=== PATIENT | female | born 1970 | race Hispanic/Latino ===

== ENCOUNTER 2023-12-27 17:25 | Emergency (ER) | payer BC ==
[2023-12-27 18:30] LABS: #Basophils 0.06 10x3/uL (0.0-0.2); %Basophils 0.5 % (0.0-1.0); %Eosinophils 2.5 % (0.0-10.0); %Lymphocytes 28.2 % (21.0-51.0); %Neutrophils 62.5 % (42.0-75.0); Hematocrit 42.4 % (36.0-47.0); Hemoglobin 13.8 g/dL (12.0-16.0); Mean Corpuscular HGB CONC 32.5 g/dL (32.0-36.0); Mean Corpuscular Hemoglobin 28.3 pg (27.0-31.0); Mean Corpuscular Volume 87.1 fL (78.0-98.0); Mean Platelet Volume 10.6 fL (7.4-10.4); Platelet Count 315 10x3/uL (130-400); RBC Distribution Width 12.5 % (11.5-14.5); Red Blood Cell (RBC) Count 4.87 mill/uL (4.20-5.40)
[2023-12-27 18:38] LABS: BHCG - Serum Negative (NEGATIVE); Pregs Control Background? CLEAR/WHITE (CLR/WHITE); Pregs Control Bar Appear? YES (CONTROL BAR)
[2023-12-27 18:46] LABS: ALT (SGPT) 15 U/L (8-55); AST (SGOT) 15 U/L (5-34); Albumin 3.8 g/dL (3.5-5.0); Alkaline Phosphatase 82 U/L (40-110); Anion Gap 13 mmol/L (10-20); BUN (Urea Nitrogen) 19 mg/dL (9.8-20.1); Bilirubin, Total 0.3 mg/dL (0.2-1.2); Calc. Creatinine Clearance 0 mL/min (70-130); Calcium 9.4 mg/dL (7.8-10.44); Carbon Dioxide 24 mmol/L (22-29); Chloride 108 mmol/L (98-107); Estimated GFR 91; Globulin 3.6 g/dL (2.4-3.5); Glucose 91 mg/dL (70-105); Potassium 4.1 mmol/L (3.5-5.1); Protein, Total 7.4 g/dL (6.0-8.3); Sodium 141 mmol/L (136-145)
[2023-12-27] MEDS ORDERED: Acetaminophen 500 MG TAB ONE (18:48)
[2023-12-27] MEDS ORDERED: Ketorolac Tromethamine 30 MG (1 mL) VIAL ONE (18:49)
[2023-12-27] MEDS ORDERED: diphenhydrAMINE 50 MG/ML VIAL ONE (18:49)
[2023-12-27] MEDS ORDERED: Metoclopramide HCl 10 MG (2 mL) VIAL ONE (18:49)
== END 2023-12-27 19:17 | disposition home or self-care (01) ==
LOC: ERS 17:25
DX: R51.9 Headache, unspecified (principal); R29.700 NIHSS score 0; Z55.6 Problems related to health literacy
CPT/HCPCS: 36415; 70450; 80053; 84703; 85025; 96374; 96375; J1200; J1885; J2765

== ENCOUNTER 2024-01-16 16:48 | Emergency (ER) | payer BC ==
[2024-01-16] MEDS ORDERED: Ketorolac Tromethamine 30 MG (1 mL) VIAL ONE (17:30)
[2024-01-16] MEDS ORDERED: Ondansetron PF 4 MG/2 ML Vial ONE (17:30)
[2024-01-16] MEDS ORDERED: Famotidine/PF 20 mg/2ml Vial ONE (17:31)
[2024-01-16 17:36] LABS: #Basophils 0.08 10x3/uL (0.0-0.2); %Basophils 0.4 % (0.0-1.0); %Eosinophils 0.6 % (0.0-10.0); %Lymphocytes 10.1 % (21.0-51.0); %Monocytes 3.6 % (0.0-10.0); %Neutrophils 84.8 % (42.0-75.0); Hematocrit 39.8 % (36.0-47.0); Hemoglobin 13.2 g/dL (12.0-16.0); Mean Corpuscular HGB CONC 33.2 g/dL (32.0-36.0); Mean Corpuscular Hemoglobin 28.2 pg (27.0-31.0); Mean Platelet Volume 10.4 fL (7.4-10.4); Platelet Count 313 10x3/uL (130-400); RBC Distribution Width 12.6 % (11.5-14.5); Red Blood Cell (RBC) Count 4.68 mill/uL (4.20-5.40)
[2024-01-16 17:51] LABS: ALT (SGPT) 53 U/L (8-55); AST (SGOT) 71 U/L (5-34); Albumin 3.8 g/dL (3.5-5.0); Alkaline Phosphatase 90 U/L (40-110); Anion Gap 12 mmol/L (10-20); BUN (Urea Nitrogen) 18 mg/dL (9.8-20.1); Bilirubin, Total 0.5 mg/dL (0.2-1.2); Calc. Creatinine Clearance 0 mL/min (70-130); Calcium 9.5 mg/dL (7.8-10.44); Carbon Dioxide 25 mmol/L (22-29); Chloride 108 mmol/L (98-107); Estimated GFR 80; Globulin 3.7 g/dL (2.4-3.5); Glucose 154 mg/dL (70-105); Lipase 23 U/L (8-78); Protein, Total 7.5 g/dL (6.0-8.3); Sodium 141 mmol/L (136-145)
[2024-01-16 18:02] LABS: Troponin I Less than 0.010 ng/mL (< 0.028)
[2024-01-16 18:28] LABS: Bilirubin Negative (Negative); Blood, Urine Negative (Negative); CAUTI Indications for Culture Pelvic or flank pain; Clarity Turbid (Clear); Glucose, Urine (Dipstick) Normal (Negative); Ketone, Urine 10 mg/dL (Negative); Leukocyte 250 Leu/uL (Negative); Nitrite Negative (Negative); Protein, Urine (Dipstick) 30 mg/dL (Neg-Trace); RBC/HPF 0-3 HPF (0-3); Specific Gravity, Urine 1.039 (1.002-1.036); WBC/HPF 21-50 HPF (0-3); pH, Urine 5.5 (5.0-9.0)
[2024-01-16 18:30] LABS: Bacteria/HPF 1+ HPF (None Seen)
[2024-01-16 18:31] LABS: Urine Culture Reflex Yes Yes
[2024-01-16] MEDS ORDERED: Ondansetron ODT 4 MG TAB ONE (20:16)
== END 2024-01-16 20:45 | disposition home or self-care (01) ==
LOC: ERS 16:48
DX: N39.0 Urinary tract infection, site not specified (principal); K80.50 Calculus of bile duct without cholangitis or cholecystitis without obstruction; K57.30 Diverticulosis of large intestine without perforation or abscess without bleeding; K44.9 Diaphragmatic hernia without obstruction or gangrene; E27.9 Disorder of adrenal gland, unspecified
CPT/HCPCS: 36415; 74177; 76705; 80053; 81001; 83605; 83690; 84484; 85025; 87040; 87086; 93005; 96361; 96374; 96375; J1885; J2405; J3490; Q0162

== ENCOUNTER 2024-02-18 18:46 | Emergency (ER) | payer BC ==
[2024-02-18] MEDS ORDERED: Ketorolac Tromethamine 30 MG (1 mL) VIAL ONE (19:20)
[2024-02-18] MEDS ORDERED: Ondansetron PF 4 MG/2 ML Vial ONE (19:20)
[2024-02-18] MEDS ORDERED: Morphine 4 MG/ML VIAL ONE (19:21)
[2024-02-18 19:29] LABS: #Basophils 0.04 10x3/uL (0.0-0.2); %Basophils 0.3 % (0.0-1.0); %Eosinophils 0.4 % (0.0-10.0); %Lymphocytes 12.1 % (21.0-51.0); %Monocytes 4.2 % (0.0-10.0); %Neutrophils 82.6 % (42.0-75.0); Mean Corpuscular HGB CONC 34.1 g/dL (32.0-36.0); Mean Corpuscular Hemoglobin 28.3 pg (27.0-31.0); Mean Corpuscular Volume 82.8 fL (78.0-98.0); Mean Platelet Volume 10.1 fL (7.4-10.4); Platelet Count 281 10x3/uL (130-400); RBC Distribution Width 12.5 % (11.5-14.5); Red Blood Cell (RBC) Count 4.95 mill/uL (4.20-5.40)
[2024-02-18 19:47] LABS: ALT (SGPT) 89 U/L (8-55); AST (SGOT) 123 U/L (5-34); Albumin 4.1 g/dL (3.5-5.0); Alkaline Phosphatase 95 U/L (40-110); Anion Gap 14 mmol/L (10-20); BUN (Urea Nitrogen) 14 mg/dL (9.8-20.1); Bilirubin, Total 0.7 mg/dL (0.2-1.2); Calc. Creatinine Clearance 0 mL/min (70-130); Calcium 9.5 mg/dL (7.8-10.44); Carbon Dioxide 26 mmol/L (22-29); Chloride 106 mmol/L (98-107); Estimated GFR 84; Globulin 3.7 g/dL (2.4-3.5); Glucose 138 mg/dL (70-105); Lipase 37 U/L (8-78); Potassium 3.5 mmol/L (3.5-5.1); Protein, Total 7.8 g/dL (6.0-8.3); Sodium 142 mmol/L (136-145)
[2024-02-18] MEDS ORDERED: Piperacillin/Tazobactam 3.375 GM VIAL ONE (22:25)
[2024-02-18] MEDS ORDERED: Sodium Chloride 0.9% 100 ML ONE (22:25)
[2024-02-18 22:37] LABS: Bacteria/HPF None Seen HPF (None Seen); Bilirubin 1+ (Negative); Blood, Urine Negative (Negative); CAUTI Indications for Culture Dysuria,urgency,freq; Clarity Turbid (Clear); Glucose, Urine (Dipstick) Normal (Negative); Ketone, Urine 40 mg/dL (Negative); Leukocyte 25 Leu/uL (Negative); Nitrite Negative (Negative); Protein, Urine (Dipstick) 70 mg/dL (Neg-Trace); RBC/HPF 0-3 HPF (0-3); Specific Gravity, Urine 1.045 (1.002-1.036); Urobilinogen Greater than 12 mg/dL (Less than 2)
[2024-02-18 22:39] LABS: Urine Culture Reflex No No
== END 2024-02-18 23:35 | disposition home or self-care (01) ==
LOC: SUATTDRO 18:46 → ERS 18:46
PROVIDERS: ADMIT Internal Medicine; ATTEND Internal Medicine
DX: K80.00 Calculus of gallbladder with acute cholecystitis without obstruction (principal); Z55.6 Problems related to health literacy
CPT/HCPCS: 36415; 76705; 80053; 81001; 83690; 85025; 87040; 96374; 96375; 96376; J1885; J2272; J2405; J2543